=== PATIENT | male | born 1935 | race Caucasian/White ===

== ENCOUNTER 2019-02-10 11:36 | Inpatient (IN) | payer MEDICARE ==
[~2019-02-10] VITALS: Ht 172.7 cm; Wt 85.8 kg
[2019-02-10] MEDS ORDERED: ASPIRIN 81MG TABLET PO ONE (12:00)
[2019-02-10 12:19] LABS: BASOPHILS % 0.6 % (0.0-2.0); EOSINOPHILS % 2.5 % (0.0-5.0); HEMATOCRIT. 40.7 % (42.0-52.0); LYMPHOCYTES % 9.3 % (20.0-50.0); MEAN CORPUSCULAR VOLUME 95.8 fL (80.0-94.0); MEAN PLATELET VOLUME 6.1 fl (7.4-10.4); MONOCYTES % 7.4 % (2.0-8.0); NEUTROPHILS % 80.2 % (40.0-76.0); PLATELET 334 x1000/uL (130-400); RED BLOOD CELL COUNT 4.25 mill/uL (4.7-6.1)
[2019-02-10 12:21] LABS: CHLORIDE 98 mEq/L (98-107)
[2019-02-10] MEDS ORDERED: HYDROCODONE/ACETAMINOPHEN 5/325MG TABLET PO ONE (12:45)
[2019-02-10] MEDS ORDERED: IPRATROPIUM/ALBUTEROL 0.5-3(2.5)MG/3ML NEB HHN PRN (16:30)
[2019-02-10] MEDS ORDERED: ONDANSETRON HCL 4MG/2ML INJ IV PRN (16:30)
[2019-02-10] MEDS ORDERED: GUAIFENESIN 200MG/10ML SUGAR FREE UDC PO PRN (16:30)
[2019-02-10] MEDS ORDERED: ENOXAPARIN 40MG/0.4ML SYR SUBCUT SCH (16:30)
[2019-02-10] MEDS ORDERED: DOCUSATE SODIUM 100MG CAPSULE PO PRN (16:30)
[2019-02-10] MEDS ORDERED: DIPHENHYDRAMINE 50MG/ML VIAL IV PRN (16:30)
[2019-02-10] MEDS ORDERED: HYDROCODONE/ACETAMINOPHEN 10/325MG TABLET PO PRN (16:30)
[2019-02-10] MEDS ORDERED: HYDRALAZINE 20MG/ML VIAL IV PRN (16:30)
[2019-02-10] MEDS ORDERED: MAGNESIUM/ALUMINUM HYDROXIDE/SIMETHICONE 30ML UDC PO PRN (16:30)
[2019-02-10] MEDS ORDERED: CLONIDINE 0.1MG TABLET PO PRN (16:30)
[2019-02-10] MEDS ORDERED: MORPHINE SULFATE 2 MG/ML CPJ (NOT FOR IM USE) IV PRN (16:30)
[2019-02-10] MEDS: ENOXAPARIN 30MG/0.3ML SYR SUBCUT SCH (18:16)
[2019-02-10 20:20] VITALS: BP 107/56
[2019-02-10] MEDS: SODIUM CHLORIDE 0.9% INJ 3ML FLUSH IVF SCH (22:00)
[2019-02-11] VITALS: BP 115/69
[2019-02-11 00:33] LABS: CREATINE KINASE 172 IU/L (39-308); CREATINE KINASE MB FRACTION < 1.0 ng/mL (0.5-3.6)
[2019-02-11] MEDS: LORAZEPAM 2MG/ML CPJ IV PRN (01:31)
[2019-02-11] MEDS: ACETAMINOPHEN 325MG TABLET PO PRN (02:32)
[2019-02-11 04:00] VITALS: BP 120/68
[2019-02-11] MEDS: SODIUM CHLORIDE 0.9% INJ 3ML FLUSH IVF SCH ×3 (06:00→21:35)
[2019-02-11 07:13] LABS: BASOPHILS % 0.8 % (0.0-2.0); HEMATOCRIT. 38.7 % (42.0-52.0); HEMOGLOBIN. 13.3 g/dL (14.0-18.0); LYMPHOCYTES % 15.7 % (20.0-50.0); MEAN CORPUSCULAR HEMOGLOBIN 32.7 pg (28.0-32.0); MEAN CORPUSCULAR VOLUME 95.4 fL (80.0-94.0); MEAN PLATELET VOLUME 6.1 fl (7.4-10.4); NEUTROPHILS % 72.5 % (40.0-76.0); PLATELET 324 x1000/uL (130-400); RED BLOOD CELL COUNT 4.05 mill/uL (4.7-6.1); RED CELL DISTRIBUTION WIDTH 13.3 % (11.6-14.6)
[2019-02-11 07:23] LABS: CHLORIDE 96 mEq/L (98-107)
[2019-02-11 07:50] LABS: CREATINE KINASE 162 IU/L (39-308)
[2019-02-11 07:51] LABS: CREATINE KINASE MB FRACTION < 1.0 ng/mL (0.5-3.6)
[2019-02-11 08:00] VITALS: BP 100/70
[2019-02-11] MEDS ORDERED: POTASSIUM CHLORIDE 20MEQ TABLET SR PO NR (10:00)
[2019-02-11] MEDS: ENOXAPARIN 30MG/0.3ML SYR SUBCUT SCH ×2 (10:07→21:35)
[2019-02-11] MEDS ORDERED: CEFTRIAXONE 2 G PREMIX 50 ML IV SCH (10:45)
[2019-02-11] MEDS ORDERED: MIRT15TA6 PO (11:39)
[2019-02-11] MEDS ORDERED: ATOR40TA70 PO (11:39)
[2019-02-11] MEDS ORDERED: TAMS-11 PO (11:39)
[2019-02-11] MEDS ORDERED: LOSA25TA26 PO (11:39)
[2019-02-11] MEDS ORDERED: DONE5TAB33 PO (11:39)
[2019-02-11] MEDS ORDERED: APIX5TAB PO (11:39)
[2019-02-11] MEDS ORDERED: MECL-159 PO (11:39)
[2019-02-11] MEDS ORDERED: CARB25TA3 PO (11:39)
[2019-02-11] MEDS ORDERED: CARV3.1242 PO (11:39)
[2019-02-11] MEDS ORDERED: SERT25TA74 PO (11:39)
[2019-02-11 12:00] VITALS: BP 116/69
[2019-02-11] MEDS ORDERED: PIPERACILLIN/TAZ 2.25G PREMIX 50 ML IV SCH (12:00)
[2019-02-11] MEDS ORDERED: CEFTRIAXONE 2 G in DEXTROSE 5% WATER 50 ML IV SCH (12:00)
[2019-02-11 12:53] LABS: T4 FREE 1.29 ng/dL (0.76-1.46)
[2019-02-11] MEDS: PIPERACILLIN/TAZOBACTAM 3.375 G in DEXT 5% WATER 100 ML IV SCH ×3 (14:01→23:20)
[2019-02-11 16:00] VITALS: BP 137/76
[2019-02-11 19:34] LABS: CLARITY URINE CLOUDY (CLEAR); COLOR URINE YELLOW (YELLOW); KETONES URINE NEGATIVE (NEGATIVE); LEUKOCYTE ESTERASE URINE 3+ (NEGATIVE); NITRITE URINE POSITIVE (NEGATIVE); OCCULT BLOOD URINE 3+ (NEGATIVE); PROTEIN URINE 1+ (NEGATIVE); SPECIFIC GRAVITY URINE 1.019 (1.005-1.030)
[2019-02-11 19:46] LABS: *AMPHETAMINES SCREEN URINE NEGATIVE (NEGATIVE); *BARBITURATES SCREEN URINE NEGATIVE (NEGATIVE); *BENZODIAZEPINES SCREEN URINE NEGATIVE (NEGATIVE)
[2019-02-11 19:47] LABS: *COCAINE SCREEN URINE NEGATIVE (NEGATIVE); CANNABINOID URINE SCREEN NEGATIVE (NEGATIVE); METHADONE URINE SCREEN NEGATIVE (NEGATIVE); OPIATES URINE SCREEN PRESUMTIVE POSITIVE (NEGATIVE); PHENCYCLIDINE URINE SCREEN NEGATIVE (NEGATIVE)
[2019-02-11 20:00] VITALS: BP 133/68
[2019-02-11 21:55] LABS: CREATINE KINASE 139 IU/L (39-308)
[2019-02-11 21:56] LABS: CREATINE KINASE MB FRACTION < 1.0 ng/mL (0.5-3.6)
[2019-02-12] VITALS: BP 133/51
[2019-02-12 04:00] VITALS: BP 114/75
[2019-02-12] MEDS: SODIUM CHLORIDE 0.9% INJ 3ML FLUSH IVF SCH ×3 (06:19→21:25)
[2019-02-12] MEDS: PIPERACILLIN/TAZOBACTAM 3.375 G in DEXT 5% WATER 100 ML IV SCH ×4 (06:19→23:51)
[2019-02-12 08:00] VITALS: BP 132/66
[2019-02-12 08:13] LABS: CREATINE KINASE 126 IU/L (39-308); CREATINE KINASE MB FRACTION < 1.0 ng/mL (0.5-3.6)
[2019-02-12] MEDS: ENOXAPARIN 30MG/0.3ML SYR SUBCUT SCH ×2 (08:43→21:24)
[2019-02-12 09:24] LABS: VITAMIN B12 SERUM 687 pg/mL (211-911)
[2019-02-12 12:00] VITALS: BP_SYST 111; BP_SYST 124; BP_SYST 97; BP_DIAS 32; BP_DIAS 69; BP_DIAS 76
[2019-02-12] MEDS: LORAZEPAM 2MG/ML CPJ IV PRN ×2 (12:44→18:37)
[2019-02-12 16:00] VITALS: BP 142/88
[2019-02-12 20:00] VITALS: BP 101/62
[2019-02-12] MEDS: ACETAMINOPHEN 325MG TABLET PO PRN (20:35)
[2019-02-13] VITALS: BP 112/63
[2019-02-13 04:00] VITALS: BP 128/69
[2019-02-13] MEDS: SODIUM CHLORIDE 0.9% INJ 3ML FLUSH IVF SCH (06:00)
[2019-02-13] MEDS: PIPERACILLIN/TAZOBACTAM 3.375 G in DEXT 5% WATER 100 ML IV SCH ×3 (07:49→20:37)
[2019-02-13 07:57] LABS: EOSINOPHILS % 9.1 % (0.0-5.0); HEMATOCRIT. 36.5 % (42.0-52.0); HEMOGLOBIN. 12.8 g/dL (14.0-18.0); LYMPHOCYTES % 16.5 % (20.0-50.0); MEAN CORPUSCULAR HEMOGLOBIN 33.3 pg (28.0-32.0); MEAN PLATELET VOLUME 6.2 fl (7.4-10.4); MONOCYTES % 9.6 % (2.0-8.0); NEUTROPHILS % 63.8 % (40.0-76.0); PLATELET 298 x1000/uL (130-400); RED BLOOD CELL COUNT 3.85 mill/uL (4.7-6.1); RED CELL DISTRIBUTION WIDTH 13.2 % (11.6-14.6)
[2019-02-13 08:00] VITALS: BP 138/77
[2019-02-13 08:35] LABS: CHLORIDE 97 mEq/L (98-107)
[2019-02-13] MEDS: ENOXAPARIN 30MG/0.3ML SYR SUBCUT SCH (09:49)
[2019-02-13] MEDS ORDERED: POTASSIUM CHLORIDE 20MEQ TABLET SR PO NR (11:45)
[2019-02-13] MEDS ORDERED: SERTRALINE HCL 25MG TABLET PO SCH (11:45)
[2019-02-13] MEDS ORDERED: DONEPEZIL HCL 5MG TABLET PO SCH (11:45)
[2019-02-13] MEDS ORDERED: TAMSULOSIN HCL 0.4MG SR CAPSULE PO SCH (11:45)
[2019-02-13] MEDS ORDERED: CARVEDILOL 3.125 MG TABLET PO SCH (11:45)
[2019-02-13] MEDS ORDERED: LOSARTAN POTASSIUM 25 MG TABLET PO SCH (11:45)
[2019-02-13 16:00] VITALS: BP 148/85
[2019-02-13] MEDS ORDERED: APIXABAN 5 MG TABLET PO SCH (17:00)
[2019-02-13 20:00] VITALS: BP 152/79
[2019-02-13 20:34] VITALS: BP 152/79
[2019-02-13] MEDS ORDERED: ATORVASTATIN CALCIUM 40MG TABLET PO SCH (21:00)
== END 2019-02-13 22:05 | disposition home or self-care (01) | DRG 872 ==
LOC: ER 11:36 → 7WST 13:11 → ENRESERV 18:55 → 7WST 22:00
PROVIDERS: ADMIT Internal Medicine; ATTEND Internal Medicine
DX: A41.9 Sepsis, unspecified organism (principal); N39.0 Urinary tract infection, site not specified; E87.1 Hypo-osmolality and hyponatremia; I47.2 Ventricular tachycardia; E87.6 Hypokalemia; I10 Essential (primary) hypertension; I25.10 Atherosclerotic heart disease of native coronary artery without angina pectoris; I95.9 Hypotension, unspecified; G20 Parkinson's disease; E78.5 Hyperlipidemia, unspecified; Z95.1 Presence of aortocoronary bypass graft; Z79.899 Other long term (current) drug therapy
CPT/HCPCS: 36415; 71045; 80048; 80053; 80061; 80305; 81003; 82550; 82553; 82607; 83036; 83880; 84439; 84443; 84484; 85025; 85379; 87077; 87186; 93005; 93306; 93970; 95816; 96372; 97162; 99291; J0696; J1650; J2060; J2543; J7060

== ENCOUNTER 2019-12-11 08:29 | Emergency (ER) | payer MEDICARE, OTHER ==
[~2019-12-11] VITALS: Ht 167.6 cm; Wt 75.0 kg
[~2019-12-11 08:29] MED LIST: ATOR40TA70 PO; CARB25TA3 PO; CARV3.1242 PO; DONE5TAB33 PO; LOSA25TA26 PO; MECL-159 PO; MIRT15TA6 PO; SERT25TA74 PO; TAMS-11 PO
[2019-12-11] MEDS ORDERED: ACETAMINOPHEN 325MG TABLET PO ONE (09:00)
[2019-12-11 09:06] VITALS: BP 142/86
== END 2019-12-11 09:07 | disposition home or self-care (01) ==
LOC: ER 08:29
DX: I10 Essential (primary) hypertension (principal); G20 Parkinson's disease; G89.29 Other chronic pain; M25.562 Pain in left knee; M25.561 Pain in right knee; Z95.1 Presence of aortocoronary bypass graft
CPT/HCPCS: 99283